=== PATIENT | female | born 1985 | race African-American/Black ===

== ENCOUNTER 2016-05-16 04:08 | Emergency (ER) | payer MEDICAID ==
[~2016-05-16] VITALS: Ht 172.7 cm; Wt 84.4 kg
[~2016-05-16 04:08] MED LIST: AZIT250T94 PO; DICY10CA60 PO; IBUP-1542 PO; ONDA4TAB35 PO
[2016-05-16 04:11] VITALS: Ht 172.7 cm; Wt 84.4 kg
--- NOTE | 2016-05-16 05:40 | ERA ---
ER Documentation Chief Complaint Date/Time DATE: 05/16/16 TIME: 05:35 Chief Complaint anxiety- had verbal argument w/ a friend HPI The patient is an 30-year-old female, presenting to the ER because of acute suicidal ideation. She plans to run into the traffic to kill herself. She has been hospitalized psychiatric hospital in August 2015. She denies auditory, visual hallucination, suicidal ideation. She is taking Zoloft but it did not help her. She denies fever, chills, neck pain, chest pain, dyspnea, abdominal pain, vomiting, dysuria, diarrhea. She smokes socially, denies drinking denies illicit drug Past medical history: Anxiety, gastritis, depression Past surgical history: Exploratory laparotomy ROS All systems reviewed and are negative except as per history of present illness. Medications Home Meds Active Scripts Ibuprofen* (Motrin*) 600 Mg Tab, 600 MG PO Q6H Y for PAIN AND OR ELEVATED TEMP, #30 Prov:MALLORY MIRANDA MD 01/05/15 Ondansetron Hcl* (Zofran* ODT) 4 mg -ODT Tab.disper, 4 MG PO Q6 Y for NAUSEA AND /OR VOMITING, #30 TAB Prov:MALLORY MIRANDA MD 01/05/15 Azithromycin* (Zithromax*) 250 Mg Tablet, 250 MG PO .ZPACK DIRECTED, #6 TAB TAKE 500 MG (2 TABS) THE FIRST DAY THEN 250 MG (1 TAB) DAYS 2-5 Prov:MALLORY MIRANDA MD 01/05/15 Reported Medications Dicyclomine Hcl* (Bentyl*) 10 Mg Capsule, 10 MG PO QID, CAP 01/05/15 Allergies Allergies: Coded Allergies: No Known Allergy (Unverified , 01/05/15) PMhx/Soc History of Surgery: Yes (Exploratory lap) Anesthesia Reaction: No Hx Neurological Disorder: No Hx Respiratory Disorders: No Hx Cardiac Disorders: No Hx Psychiatric Problems: Yes (anxiety,psychomatic) Hx Miscellaneous Medical Probl: Yes (IUD) Hx Alcohol Use: No Hx Substance Use: No Hx Tobacco Use: Yes Smoking Status: Current every day smoker Physical Exam Vitals Vital Signs Date Time Temp Pulse Resp B/P Pulse Ox O2 Delivery O2 Flow Rate FiO2 05/16/16 04:11 97.8 101 20 141/91 98 Physical Exam Const: No acute distress. Head: Atraumatic. Eyes: Normal Conjunctiva. ENT: Normal External Ears, Nose and Mouth. Neck: Full range of motion. No meningismus. Resp: Clear to auscultation bilaterally. Cardio: Regular rate and rhythm, no murmurs. Abd: Soft, non distended, normal bowel sounds, non tender. Skin: No petechiae or rashes. Back: No midline or flank tenderness. Ext: No cyanosis, or edema. Neur: Awake and alert. No focal deficit Psych: Depressed and suicidal. Procedures/MDM MEDICAL MAKING DECISION: The patient is a 30-year-old female, presenting with acute suicidal ideation. The differential diagnoses considered include but are not limited to psychosis, drug-induced psychosis, decompensated psychiatric illness Departure Diagnosis: Primary Impression: Suicidal ideation Condition: Stable Comments The labs are pending. The patient is awaiting for tele-psychiatrist's evaluation The patient's blood pressure was elevated (>120/80) but appears stable without evidence of hypertension emergency or urgency. The patient was counseled about the risks of hypertension and urged to pursue outpatient monitoring and therapy within a week after discharge with their primary care physician. TOM RIZZO MD May 16, 2016 05:40
[2016-05-16 05:44] LABS: URINE BLOOD (Dip) POC 2+ (NEGATIVE)
[2016-05-16 06:09] LABS: ADD SCAN DIFF NO
[2016-05-16 06:28] LABS: ALBUMIN 4.4 g/dl (3.3-4.9); CHLORIDE 107 mmol/L (97-110); SODIUM 142 mmol/L (135-144)
[2016-05-16 06:30] LABS: BILIRUBIN,INDIRECT 0.2 mg/dl (0-1.1); BILIRUBIN,TOTAL 0.2 mg/dl (0.2-1.3); CREATININE 0.71 mg/dl (0.44-1.00)
[2016-05-16 06:31] LABS: ALANINE AMINOTRANSFERASE 27 IU/L (13-69); ALBUMIN/GLOBULIN RATIO 1.41; ALKALINE PHOSPHATASE 67 IU/L (42-121); ANION GAP 16 (8-16); ASPARTATE AMINO TRANSFERASE 25 IU/L (15-46); BLOOD UREA NITROGEN 16 mg/dl (7-20); CALCIUM 9.5 mg/dl (8.4-10.2); CARBON DIOXIDE 23 mmol/L (21-31); GLUCOSE 94 mg/dl (70-220); TOTAL PROTEIN 7.5 g/dl (6.1-8.1)
[2016-05-16 06:37] LABS: BASOPHILS % 0.2 % (0.0-2.0); EOSINOPHILS % 0.3 % (0.0-7.0); HEMATOCRIT 42.2 % (37.0-47.0); HEMOGLOBIN 14.3 g/dl (12.0-16.0); LYMPHOCYTES % 16.5 % (15.0-51.0); MEAN CORPUSCULAR HEMOGLOBIN 31.8 pg (29.0-33.0); MEAN CORPUSCULAR HGB CONC 33.9 g/dl (32.0-37.0); MONOCYTES % 8.6 % (0.0-11.0); NEUTROPHIL # 8.9 10^3/ul (1.6-7.5); NEUTROPHILS % 73.8 % (39.0-77.0); PLATELET COUNT 322 10^3/UL (140-415); RED BLOOD COUNT 4.49 10^6/ul (4.20-5.40); WHITE BLOOD COUNT 12.1 10^3/ul (4.8-10.8)
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
[2016-05-16 06:58] LABS: ADD UMIC YES; URINE BILIRUBIN (Dip) 2+ (NEGATIVE); URINE BLOOD (Dip) 1+ (NEGATIVE); URINE COLOR YELLOW (YELLOW); URINE GLUCOSE (Dip) NEGATIVE (NEGATIVE); URINE KETONES (Dip) TRACE (NEGATIVE); URINE LEUKOCYTE ESTERASE (Dip) NEGATIVE (NEGATIVE); URINE NITRITE (Dip) NEGATIVE (NEGATIVE); URINE TOTAL PROTEIN (Dip) 1+ (NEGATIVE); URINE UROBILINOGEN (Dip) 1.0 E.U./dL (0.1-1.0)
[2016-05-16 07:00] LABS: SALICYLATE < 1.0 mg/dl (5.0-30.0)
[2016-05-16] MEDS ORDERED: HALOPERIDOL 5 MG INJ IM ONE (07:00)
[2016-05-16] MEDS ORDERED: LORAZEPAM 2 MG INJ IM ONE (07:00)
[2016-05-16 07:01] LABS: ETHANOL < 10.0 mg/dl
[2016-05-16 07:37] LABS: BENZODIAZEPINES Negative (NEGATIVE)
[2016-05-16 07:39] LABS: CANNABINOIDS Positive (NEGATIVE)
[2016-05-16 07:42] LABS: BARBITURATES Negative (NEGATIVE); COCAINE Negative (NEGATIVE); OPIATES Negative (NEGATIVE)
[2016-05-16 08:13] LABS: BACTERIA,URINE OCCASIONAL; ICTOTEST POSITIVE (NEGATIVE)
[2016-05-16] MEDS ORDERED: SERT-165 PO (08:14)
[2016-05-16 11:59] VITALS: BP 167/62; PULSE 84; RESP 20; TEMP 98.4
== END 2016-05-16 12:00 ==
LOC: FTE 04:08 → E/R 12:00
DX: F41.9 Anxiety disorder, unspecified (principal); R45.851 Suicidal ideations; F17.210 Nicotine dependence, cigarettes, uncomplicated
CPT/HCPCS: 36415; 80053; 80306; 80307; 81001; 81003; 85025; Z7502